=== PATIENT | female | born 1995 | race Two or more races ===

== ENCOUNTER 2025-01-02 20:14 | Emergency (ER) | payer MEDICAID, OTHER ==
[~2025-01-02] VITALS: Ht 149.9 cm; Wt 69.3 kg
--- NOTE | 2025-01-02 20:31 | ED.PDOC ---
History of Present Illness HPI Comments PT CAME TO THE ER WITH CC OF SORE THROAT WITH CHILLS SINCE THIS MORNING, PT IS A&OX4 RR EVEN AND REGULAR NO DISTRESS NOTED AT THIS TIME. Chief Complaint: Sore Throat Time Seen by MD: 20:17 Reviewed Notes: Nurses Notes, Medications, Allergies Information Source: Patient Past Medical History PAST MEDICAL HISTORY: Denies Surgical History: Denies all surgeries CARAMEL CANDY MAKER HELPER History: No Pertinent CARAMEL CANDY MAKER HELPER History Family History Family History: Reviewed,noncontributory to illness Social History Smoker: Non-Smoker Alcohol: Denies ETOH Use Drugs: Denies Drug Use All Other Systems: Reviewed and Negative (see hpi) Physical Exam General Appearance: No Apparent Distress, Normal HEENT: Normal ENT Inspection, Pharynx Normal, TMs Normal, Tonsillar Exudate (GRADE 4 TONSILS) Neck: Full Range of Motion, Non-Tender Respiratory: Chest Non-Tender, Decreased Breath Sounds, No Accessory Muscle Use, No Respiratory Distress Cardiovascular: No Edema, No JVD, No Murmur, No Gallop, Normal Peripheral Pulses, Regular Rate/Rhythm Breast Exam: Deferred Gastrointestinal: No Organomegaly, Non Tender, No Pulsatile Mass, Normal Bowel Sounds, Soft Genitalia: Deferred Pelvic: Deferred Rectal: Deferred Extremities: Normal capillary refill, Normal range of motion, No pedal edema Musculoskeletal : Apperance: Normal Neurologic: Alert, No Motor Deficits, Normal Affect, Normal Mood, No Sensory Deficits Cerebellar Function: Normal Reflexes: Normal Skin: Dry, Normal Color, Warm Lymphatic: No Adenopathy Was a procedure done? Was a procedure done?: No Fever Differential Dx Differential Diagnosis: Influenza, Meningitis, Pneumonia, Pyelonephritis, Sepsis, UTI, Pharyngitis X-Ray, Labs, Meds, VS Vital Signs Date Time Temp Pulse Resp B/P (MAP) Pulse Ox O2 Delivery O2 Flow Rate FiO2 01/02/ 20:16 98.1 106 16 144/83 100 98.1 Time of 1ST Reevaluation: 20:35 Reevaluation 1ST: Unchanged Time of 2ND Reevaluation: 23:10 Reevaluation 2ND: Improved Patient Education/Counseling: Diagnosis, Treatment, Prognosis, Need For Follow Up Family Education/Counseling: No Family Present SEPSIS Sepsis Screen Date sepsis recognized/suspect: Jan 02, 2025 Time Sepsis recognized/suspect: 2017 Recent Procedure: No On Antibiotic Therapy: No Respiratory Rate >20: No Heart Rate >90: No Temp<36 C (96.8 F) or >38.3 C: No SBP <90 or MAP <65 mmHG: No New Acute Mental Status Change: No Is the patient on CPAP, BIPAP,: No Physician Orders Ceftriaxone Sodium (Rocephin) (01/02/25 23:15) Dexamethasone Injection (Decadron Inject (01/02/25 23:15) Vital Signs Date Time Temp Pulse Resp B/P (MAP) Pulse Ox O2 Delivery O2 Flow Rate FiO2 01/02/25 20:16 98.1 106 16 144/83 100 98.1 Departure 1 Departure Time of Disposition: 23:08 Impression: Primary Impression: Acute tonsillitis Qualified Codes: J03.90 - Acute tonsillitis, unspecified Disposition: 01 HOME / SELF CARE / HOMELESS Condition: Stable e-Prescriptions Methylprednisolone (Medrol Dosepak) 4 Mg Fabio 4 MG PO UD for 6 Days, #21 TAB UAD Prov: BOO LOZOYA 01/02/25 Cefdinir (Cefdinir) 300 Mg Cap 1 CAP PO BID for 7 Days, #14 CAP Prov: BOO LOZOYA 01/02/25 Discharged With: Self Critical Care Note Critical Care Time?: No Stability Stability form required: No BOO LOZOYA Jan 02, 2025 20:31
[2025-01-02] MEDS ORDERED: METH4PAK PO (23:10)
[2025-01-02] MEDS ORDERED: CEFD300C2 PO (23:10)
[2025-01-02] MEDS: cefTRIAXone SOD 1,000 MG VL IM ONE (23:30)
[2025-01-02 23:44] VITALS: BP 120/90; PULSE 70; RESP 19; TEMP 98.2; O2SAT 97
== END 2025-01-02 23:44 | disposition home or self-care (01) ==
LOC: ER 20:14
DX: J03.90 Acute tonsillitis, unspecified (principal)
CPT/HCPCS: 96372; 99284; J0696; J1100

== ENCOUNTER 2025-02-28 21:08 | Emergency (ER) | payer MEDICAID ==
[~2025-02-28] VITALS: Ht 147.3 cm; Wt 68.2 kg
[2025-02-28 21:10] VITALS: BP 121/76; PULSE 73; TEMP 98.4
[2025-02-28] MEDS: IPRATROPIUM BROM 0.5 MG/2.5ML INH SOL NEB ONE (21:31)
[2025-02-28] MEDS: ALBUTEROL SULF 2.5 MG/0.5ML(0.5%) NEB SOLN NEB ONE (21:31)
[2025-02-28 21:32] VITALS: RESP 18; O2SAT 96
--- NOTE | 2025-02-28 23:14 | ED.PDOC ---
History of Present Illness HPI Comments 29 y/o obese F, with a Hx of asthma, presents with c/c of shortness of breath. Patient endorses on sudden onset of difficulty breathing. She comments on being unable to use her nebulizer at home, due to device not turning on for unknown reasons. Deniea any further acute symptoms. Chief Complaint: Asthma Time Seen by MD: 23:07 Reviewed Notes: Nurses Notes, Medications, Allergies Information Source: Patient Mode of Arrival: Ambulatory Severity: Moderate Timing: Hours Duration: Since onset Prehospital treatment: None Past Medical History PAST MEDICAL HISTORY: Denies Surgical History: Denies all surgeries BALANCE BRIDGE INSPECTOR History: No Pertinent BALANCE BRIDGE INSPECTOR History Family History Family History: Reviewed,noncontributory to illness Social History Smoker: Non-Smoker Alcohol: Denies ETOH Use Drugs: Denies Drug Use Lives In: Home All Other Systems: Reviewed and Negative (As per HPI) Was a procedure done? Was a procedure done?: No Differential Dx Considerations may include: asthma exacerbation, URI, PNA, among others X-Ray, Labs, Meds, VS Vital Signs Date Time Temp Pulse Resp B/P (MAP) Pulse Ox O2 Delivery O2 Flow Rate FiO2 02/28/25 21:32 18 96 Room Air* 0 21 02/28/25 21:10 98.4 73 20 121/76 98 98.4 Current Medications Medications (Trade) Dose Ordered Sig/Primo Route Start Time Stop Time Status Last Admin Albuterol (Ventolin Medneb) 5 mg ONCE ONCE NEB 02/28/25 21:30 02/28/25 21:31 DC 02/28/25 21:31 Ipratropium [place] (Atrovent Medneb) 0.5 mg ONCE ONCE NEB 02/28/25 21:30 02/28/25 21:31 DC 02/28/25 21:31 Dexamethasone Sodium Phosphate (Decadron Injection) 10 mg ONCE ONCE IM 02/28/25 21:30 02/28/25 21:31 DC 02/28/25 21:38 Reevaluation 1ST: Unchanged Patient Education/Counseling: Diagnosis, Treatment, Need For Follow Up Family Education/Counseling: No Family Present SEPSIS Sepsis Screen Date sepsis recognized/suspect: Feb 28, 2025 Time Sepsis recognized/suspect: 2113 Recent Procedure: No On Antibiotic Therapy: Yes Respiratory Rate >20: No Heart Rate >90: No Temp<36 C (96.8 F) or >38.3 C: No SBP <90 or MAP <65 mmHG: No New Acute Mental Status Change: No Is the patient on CPAP, BIPAP,: No Vital Signs Date Time Temp Pulse Resp B/P (MAP) Pulse Ox O2 Delivery O2 Flow Rate FiO2 02/28/25 21:32 18 96 Room Air* 0 21 02/28/25 21:10 98.4 73 20 121/76 98 98.4 Medications Medications Dose Ordered Sig/Primo Route Start Time Stop Time Status Last Admin Dose Admin Albuterol 5 mg ONCE ONCE NEB 02/28/25 21:30 02/28/25 21:31 DC 02/28/25 21:31 Dexamethasone Sodium Phosphate 10 mg ONCE ONCE IM 02/28/25 21:30 02/28/25 21:31 DC 02/28/25 21:38 Ipratropium [place] 0.5 mg ONCE ONCE NEB 02/28/25 21:30 02/28/25 21:31 DC 02/28/25 21:31 Departure 1 Departure Disposition: 01 HOME / SELF CARE / HOMELESS Discharged With: Self Critical Care Note Critical Care Time?: No Stability Stability form required: No Heart Score Heart Score: Heart Score Response (Comments) Value History N/A 0 EKG N/A 0 Age N/A 0 Risk Factors N/A 0 Troponin N/A 0 Total 0 I personally scribed for ER ([email or web address]) on 02/28/25 at 23:14. Electronically submitted by Delbert Copeland ([email or web address]). I personally scribed for ER ([email or web address]) on 02/28/25 at 23:14. Electronically submitted by Delbert Copeland ([email or web address]). ER Feb 28, 2025 23:14
== END 2025-02-28 23:07 | disposition left against medical advice (07) ==
LOC: ER 21:08
DX: R06.02 Shortness of breath (principal); Z79.899 Other long term (current) drug therapy
CPT/HCPCS: 94640; 96372; 99281; J1100